=== PATIENT | female | born 1960 | race Caucasian/White ===

== ENCOUNTER 2017-01-19 22:01 | Inpatient (IN) ==
[2017-01-19 22:56] LABS: Basophils % 0.3 %; Eosinophils # 0.1 K/mcL (0.0-0.6); Eosinophils % 0.4 %; Hematocrit 45.8 % (35.3-44.9); Hemoglobin 14.8 g/dL (11.5-15.4); Immature Granulocytes % 0.7 % (0-4); Lymphocytes # 2.2 K/mcL (0.6-4.6); Lymphocytes % 16.9 %; Mean Corpuscular HGB Conc 32.3 g/dL (31.6-35.5); Mean Corpuscular Hemoglobin 27.5 pg (28.0-33.3); Mean Platelet Volume 8.9 fL (9.4-12.4); Monocytes # 0.8 K/mcL (0.0-1.3); Monocytes % 6.1 %; Platelet Count 419 K/mcL (140-400); Red Blood Count 5.39 M/mcL (3.82-4.97); Red Cell Distribution Width 15.1 % (11.5-14.5); Segmented Neutrophils % 75.6 %
[2017-01-19 22:57] LABS: Bilirubin,Urine Negative (Negative); Blood,Urine Negative (Negative); Color,Urine Yellow (Yellow); Leukocyte Esterase,Urine Small (Negative); Nitrite,Urine Negative (Negative); Urobilinogen,Urine Normal (Normal)
[2017-01-19] MEDS ORDERED: Ondansetron 4 MG/2 ML VIAL IVP ONE (22:57)
[2017-01-19] MEDS ORDERED: 0.9 % Sodium Chloride 1,000 ML IVC ONE (22:58)
[2017-01-19 23:10] LABS: Alanine Aminotransferase 20 Units/L (0-55); Albumin 3.5 g/dL (3.5-5.0); Albumin/Globulin Ratio 0.8 (1.1-2.2); Alkaline Phosphatase 97 Units/L (38-126); Amylase 218 Units/L (25-125); Aspartate Amino Transferase 15 Units/L (5-34); BUN/Creatinine Ratio 10 (6-26); Bilirubin,Direct 0.1 mg/dL (0.0-0.5); Bilirubin,Indirect 0.2 mg/dL (0.0-1.2); Bilirubin,Total 0.3 mg/dL (0.2-1.2); Blood Urea Nitrogen 8 mg/dL (7-20); Carbon Dioxide 21 mEq/L (19-29); Chloride 105 mEq/L (98-109); Globulin 4.5 g/dL (2.4-3.5); Glucose 141 mg/dL (70-99); Lipase 796 Units/L (8-78); Osmolality,Calculated 287 (280-300); Potassium 3.9 mEq/L (3.5-4.5); Sodium 138 mEq/L (136-145); eGFR For African Americans > 60 (> 60); eGFR For Non-African Americans > 60 (> 60)
[2017-01-19 23:16] LABS: Clarity,Urine Clear (Clear)
[2017-01-19 23:17] LABS: Glucose,Urine (UA) >=1000 mg/dL (Normal)
[2017-01-19 23:18] LABS: Ketones,Urine Negative (Negative)
[2017-01-19 23:19] LABS: Protein,Urine Negative (Neg-Trace); Specific Gravity,Urine 1.016 (1.010-1.025)
[2017-01-19 23:26] LABS: RBC,Urine 0-3 per hpf (0-3); Squamous Epithelial Cell,Urine Few per lpf (None-Few)
--- NOTE | 2017-01-19 23:47 | Emergency Department Note ---
Disposition Clinical Impression: Nausea Diarrhea Qualifiers: Diarrhea type: unspecified type Qualified Code(s): R19.7 - Diarrhea, unspecified Abdominal pain Qualifiers: Abdominal location: left lower quadrant Qualified Code(s): R10.32 - Left lower quadrant pain Pancreatitis Qualifiers: Chronicity: acute Pancreatitis type: unspecified pancreatitis type Acute pancreatitis complication: unspecified Qualified Code(s): K85.90 - Acute pancreatitis without necrosis or infection, unspecified Disposition: Admitted As Inpatient Time of Disposition: 00:55 Abdominal Pain HPI - General Chief Complaint: ED Abdominal Pain Stated Complaint: "Diarrhea/Nausea/Vomiting" Time Seen by Provider: 01/19/17 22:41 Source: patient Nursing Notes Reviewed: Yes Vital Signs Reviewed: Yes - History of Present Illness HPI Narrative: Mrs. Muñoz, 56-year-old female, presents from home by POV with chief complaint of nausea, vomiting, diarrhea. Onset 3 weeks ago. At that time, she was evaluated by her primary care physician and received an unknown antibiotic. 2 weeks ago should, she followed up with her blood bank coordinator, , who prescribes a fiber supplement attempting to firm up bowel movements. Her diarrhea persisted. She presented to this department this past Wednesday and was empirically treated for C. difficile colitis however stool sample was not collected at that time. Patient's symptoms worsened and thus her presentation today. Patient also notes bright red blood spots in the water of commode which began this morning. She denies any recent travel, camping, or unusual foods. PMH: Hypertension, diabetes-oral antihyperglycemic and insulin Abdominal surgeries: Appendectomy ROS: Positive chills, nausea, vomiting, persistent loose bowels Pain Scale: 10 - Related Data Previous Rx's Medication Instructions Recorded Sulfamethoxazole/Trimeth DS 1 each PO BID #14 tablet 08/11/16 [Bactrim DS] metroNIDAZOLE [Flagyl] 500 mg PO TID #21 tablet 01/15/17 Allergies Allergy/AdvReac Type Severity Reaction Status Date / Time No Known Allergies Allergy Verified 08/10/16 22:23 All systems ED: reviewed and negative except as stated. Abdominal Pain PMH - Past Medical History Medical history: Reports: diabetes, hypertension, thyroid disease Female Surgical History: Reports: hysterectomy, orthopedic, other Psychiatric history: Reports: anxiety - Social History Smoking status: Current every day smoker Alcohol use: Reports: none Drug use: Reports: none Physical Exam Vital Signs Reviewed General: Patient is alert, oriented, and in moderate distress. HEENT: No facial asymmetry. Head is normocephalic and atraumatic. Trachea midline. Oral mucosa dry. Cardiovascular: Heart regular rate and rhythm without clicks, rubs, gallops, or murmurs. No JVD. PMI nondisplaced. Respiratory: Symmetric chest rise with good respiratory effort. Bilateral breath sounds are clear without wheezing, crackles, or rhonchi. Abdomen: Obese. Bowel sounds present normoactive x-4 quadrants. Abdomen is soft, nondistended. Mild left lower quadrant tenderness. Psych: Patient's affect is appropriate for situation. - General Limitations: no limitations General appearance: alert Course Course Narrative: Concern is for continued colitis. Need to rule out mesenteric ischemia. Fecal occult blood test positive. However lipase indicates pancreatitis. Patient's abdominal pain for the controlled despite opiate administration. Nausea moderately controlled despite multiple doses of Zofran. Discussed with the patient and her at bedside agreed to admission for continued pain management, nausea control, and evaluation of her diarrhea. Spoke with the hospitalist, Dr. Nunes, who agrees to accept the patient. Vital Signs Temperature 98.2 F 01/19/17 22:14 Pulse Rate 110 01/19/17 22:14 Respiratory Rate 20 01/19/17 22:14 Blood Pressure 122/78 01/19/17 22:14 O2 Sat by Pulse Oximetry 95 01/19/17 22:14 Temperature 98.2 F 01/19/17 22:14 Pulse Rate 90 01/20/17 00:10 Respiratory Rate 16 01/20/17 00:59 Blood Pressure 115/67 01/20/17 00:59 O2 Sat by Pulse Oximetry 95 01/20/17 00:10 Oxygen Delivery Oxygen Delivery Room Air Abdominal Pain - Lab Data Result diagrams: 01/19/17 22:39 01/19/17 22:39 Lab Results 01/19/17 01/19/17 01/19/17 Range/Units 22:30 22:39 22:39 WBC 13.2 H (4.3-11.1) K/mcL RBC 5.39 H (3.82-4.97) M/mcL Hgb 14.8 D (11.5-15.4) g/dL Hct 45.8 H (35.3-44.9) % MCV 85.0 (83.0-100.0) fL MCH 27.5 L (28.0-33.3) pg MCHC 32.3 (31.6-35.5) g/dL RDW 15.1 H (11.5-14.5) % Plt Count 419 H (140-400) K/mcL MPV 8.9 L (9.4-12.4) fL Immature Gran % 0.7 (0-4) % Seg Neutrophils % 75.6 % Lymphocytes % 16.9 % Monocytes % 6.1 % Eosinophils % 0.4 % Basophils % 0.3 % Neutrophils # 10.0 H (1.6-8.9) K/mcL Lymphocytes # 2.2 (0.6-4.6) K/mcL Monocytes # 0.8 (0.0-1.3) K/mcL Eosinophils # 0.1 (0.0-0.6) K/mcL Basophils # 0.0 (0.0-0.2) K/mcL Sodium 138 (136-145) mEq/L Potassium 3.9 (3.5-4.5) mEq/L Chloride 105 (98-109) mEq/L Carbon Dioxide 21 (19-29) mEq/L BUN 8 (7-20) mg/dL Creatinine 0.84 (0.57-1.11) mg/dL Est GFR ( Amer) > 60 (> 60) Est GFR (Non-Af Amer) > 60 (> 60) BUN/Creatinine Ratio 10 (6-26) Glucose 141 H (70-99) mg/dL Calculated Osmolality 287 (280-300) Lactic Acid (0.5-2.2) mmol/L Calcium 10.0 (8.6-10.8) mg/dL Total Bilirubin 0.3 (0.2-1.2) mg/dL Direct Bilirubin 0.1 (0.0-0.5) mg/dL Indirect Bilirubin 0.2 (0.0-1.2) mg/dL AST 15 (5-34) Units/L ALT 20 (0-55) Units/L Alkaline Phosphatase 97 (38-126) Units/L Serum Total Protein 8.0 (6.0-8.3) g/dL Albumin 3.5 (3.5-5.0) g/dL Globulin 4.5 H (2.4-3.5) g/dL Albumin/Globulin Ratio 0.8 L (1.1-2.2) Amylase 218 H (25-125) Units/L Lipase 796 H (8-78) Units/L Urine Color Yellow (Yellow) Urine Clarity Clear (Clear) Urine pH 6.0 (5.0-8.0) pH Units Ur Specific [place] 1.016 (1.010-1.025) Urine Protein Negative (Neg-Trace) mg/dL Urine Glucose (UA) >=1000 H (Normal) mg/dL Urine Ketones Negative (Negative) mg/dL Urine Blood Negative (Negative) Urine Nitrite Negative (Negative) Urine Bilirubin Negative (Negative) Urine Urobilinogen Normal (Normal) mg/dL Ur Leukocyte Esterase Small H (Negative) Urine Microscopic RBC 0-3 (0-3) per hpf Urine Microscopic WBC 3-5 H (0-3) per hpf Ur Squamous Epith Cells Few (None-Few) per lpf Urine Bacteria Test Not Performed Hyaline Casts Test Not Performed Ur Culture Indicated? NO (NO) Stool Occult Blood (Negative) 01/19/17 01/20/17 Range/Units 23:36 00:35 WBC (4.3-11.1) K/mcL RBC (3.82-4.97) M/mcL Hgb (11.5-15.4) g/dL Hct (35.3-44.9) % MCV (83.0-100.0) fL MCH (28.0-33.3) pg MCHC (31.6-35.5) g/dL RDW (11.5-14.5) % Plt Count (140-400) K/mcL MPV (9.4-12.4) fL Immature Gran % (0-4) % Seg Neutrophils % % Lymphocytes % % Monocytes % % Eosinophils % % Basophils % % Neutrophils # (1.6-8.9) K/mcL Lymphocytes # (0.6-4.6) K/mcL Monocytes # (0.0-1.3) K/mcL Eosinophils # (0.0-0.6) K/mcL Basophils # (0.0-0.2) K/mcL Sodium (136-145) mEq/L Potassium (3.5-4.5) mEq/L Chloride (98-109) mEq/L Carbon Dioxide (19-29) mEq/L BUN (7-20) mg/dL Creatinine (0.57-1.11) mg/dL Est GFR ( Amer) (> 60) Est GFR (Non-Af Amer) (> 60) BUN/Creatinine Ratio (6-26) Glucose (70-99) mg/dL Calculated Osmolality (280-300) Lactic Acid 0.6 (0.5-2.2) mmol/L Calcium (8.6-10.8) mg/dL Total Bilirubin (0.2-1.2) mg/dL Direct Bilirubin (0.0-0.5) mg/dL Indirect Bilirubin (0.0-1.2) mg/dL AST (5-34) Units/L ALT (0-55) Units/L Alkaline Phosphatase (38-126) Units/L Serum Total Protein (6.0-8.3) g/dL Albumin (3.5-5.0) g/dL Globulin (2.4-3.5) g/dL Albumin/Globulin Ratio (1.1-2.2) Amylase (25-125) Units/L Lipase (8-78) Units/L Urine Color (Yellow) Urine Clarity (Clear) Urine pH (5.0-8.0) pH Units Ur Specific [place] (1.010-1.025) Urine Protein (Neg-Trace) mg/dL Urine Glucose (UA) (Normal) mg/dL Urine Ketones (Negative) mg/dL Urine Blood (Negative) Urine Nitrite (Negative) Urine Bilirubin (Negative) Urine Urobilinogen (Normal) mg/dL Ur Leukocyte Esterase (Negative) Urine Microscopic RBC (0-3) per hpf Urine Microscopic WBC (0-3) per hpf Ur Squamous Epith Cells (None-Few) per lpf Urine Bacteria Hyaline Casts Ur Culture Indicated? (NO) Stool Occult Blood Positive A (Negative) Attestation Statement - Attestation Attestation: I, Tee Sparrow MD, personally evaluated this patient and discussed their management with the resident physician. I reviewed the resident's note and agree with the documented findings, medical decision making, and plan of care. 56-year-old female presents to the emergency department with a complaint of nausea vomiting diarrhea and abdominal pain which has been going on for at least 3 weeks. The diarrhea is somewhat chronic but flares up intermittently. Seen previously for this and just recently had a CT of the abdomen. She has also been seen by gastroenterology. She presents tonight complaining of increased symptoms diarrhea. No fever. On examination patient is a well-developed well-nourished female in no acute distress. She is alert and oriented 3. There is no cyanosis or diaphoresis. Breath sounds are clear and equal bilaterally. Heart regular rate and rhythm. Abdomen is soft with moderate midepigastric and mild diffuse tenderness. Bowel sounds are increased. No guarding or rebound tenderness. Labs reviewed. Elevated amylase and lipase. The hospitalist, Dr. Arellano, was consulted and accepted admission of the patient.
[2017-01-20 01:02] LABS: Adenovirus F 40/41 PCR Not detected (Not detect); Astrovirus PCR Not detected (Not detect); C.difficile Toxin A/B by PCR Not detected (Not detect); Campylobacter by PCR Not detected (Not detect); Cryptosporidium by PCR Not detected (Not detect); Cyclospora cayetanensis PCR Not detected (Not detect); E. coli O157 by PCR Not detected (Not detect); Entamoeba histolytica PCR Not detected (Not detect); Enteroaggregative E.coli(EAEC) Not detected (Not detect); Enteropathogenic E.coli(EPEC) Not detected (Not detect); Enterotoxigenic E.coli (ETEC) Not detected (Not detect); Giardia lamblia PCR Not detected (Not detect); Norovirus GI/GII PCR Not detected (Not detect); Plesiomonas shigelloides PCR Not detected (Not detect); Rotavirus A PCR Not detected (Not detect); Salmonella PCR Not detected (Not detect); Sapovirus PCR Not detected (Not detect); Shig/EnteroinvasiveE coli EIEC Not detected (Not detect); Shigalike tox-prod E coli STEC Not detected (Not detect); Vibrio PCR Not detected (Not detect); Vibrio cholerae PCR Not detected (Not detect); Yersinia enterocolitica PCR Not detected (Not detect)
--- NOTE | 2017-01-20 01:34 | Internal Med History&Physical ---
Date of Encounter: 01/20/17 Time of Encounter: 01:34 Assessment and Plan (1) Colitis Current visit: Yes Status: Acute patient with a description of prior irritable bowel syndrome and normal prior colonoscopy comes in with worsening diarrhea that is bloody, stool exam is unremarkable, the etiology of her current predicament may be inflammatory in origin, her Abdo/pelvic CT on 01/15 reports resolving terminal ileum inflammation , suspected ileus/enteritis we will treat empirically with IV cipro/flagyl, she will benefit from colonoscopy when this acute period has resolved for further evaluation of her symptoms IVF, antiemetics, pain management (2) Diabetes mellitus Current visit: Yes Status: Chronic reported hx of Type DM with last A1c unknown, we will do FS ACHS with SSI for coverage, will check A1c Qualifiers: Diabetes mellitus type: type 2 Diabetes mellitus complication status: with neurologic complications Diabetes mellitus complication detail: with polyneuropathy Diabetes mellitus intermission coordinator insulin use: without intermission coordinator use Qualified Code(s): E11.42 - Type 2 diabetes mellitus with diabetic polyneuropathy (3) HTN (hypertension) Current visit: Yes Status: Chronic normotensive BP currently, will monitor and find out about her home medications Qualifiers: Hypertension type: essential hypertension Qualified Code(s): I10 - Essential (primary) hypertension Internal Medicine - H&P: HPI Chief complaint: nausea, abdominal pain and diarrhea Admitted From: Emergency Dept Plans for Post Hospital Care: Home History of present illness: Ms. Muñoz is a 56 year old female with a history of chronic diarrhea for the past 20 years comes in with worsening diarrhea. She reports that she has had worsening of her symptoms in the past 4 weeks, 3 weeks ago she received some antibiosis for her symptoms and after that her diarrhea continued. About a week ago she noticed that her stool were bloody which she has never had prior. Her diarrhea has also been associated with crampy lower abdominal pain mostly in the right and let lower abdomen, worse with movement, eating. She has nausea but no vomiting though she has dry heaves, no fever chills but she fees very fatigued with generalized weakness. Past Med Surg Social Fam HX - Past Medical History Medical history: diabetes, hyperlipidemia, hypertension, thyroid disease, other (osteoarthritis, bladder stones) Psychiatric history: anxiety - Past Surgical History Surgical History: hysterectomy, other (tonsillectomy), arthroscopy (left) - Social History Smoking Status: Current every day smoker Packs per day: 1ppd for about 50 years now Smokeless Tobacco Status: No Alcohol use: none Drug use: none Current living situation: Home - Independent, With Family Activity Level: Independent ambulation - Family History Mother Living Status: Age at : 81 Cause of : COPD Hx Family Endocrine Disorder: Yes (DM) Father Living Status: Age at : 62 Cause of : [place] Hx Family Cardiac Disorders: Yes (unknown) Hx Family Cancer: Yes (stomach) - Additional Family History Additional family history: father is , he had stomach cancer in his 50's , mother is also and she had COPD, brother's beck has crohn's disease Internal Medicine - H&P: Meds Sulfamethoxazole/Trimeth DS [Bactrim DS] 1 each PO BID #14 tablet 08/11/16 [Rx] metroNIDAZOLE [Flagyl] 500 mg PO TID #21 tablet 01/15/17 [Rx] Allergies No Known Allergies Allergy (Verified 08/10/16 22:23) All Systems PM: A 10-system review of systems was performed and is negative for pertinent findings except as documented above in the HPI. - Constitutional Vitals: Temp Pulse Resp BP Pulse Ox 98.3 F 98 18 123/74 94 01/20/17 01:25 01/20/17 01:25 01/20/17 01:25 01/20/17 01:25 01/20/17 01:25 PHYSICAL EXAMINATION: GENERAL: Adult female, lying in bed in obvious distress, Alert, HEENT: NC/AT, EOMI, PERRLA, anicteric sclera, normal conjunctiva, supple, clear nares, dry mucous membranes, RESP: lungs are clear to auscultation bilaterally, good AE bilaterally, No crackles or wheeze CARDIO: Normal hearts sounds; S1 and 2, RRR with no murmurs, no JVD, GI: Soft, full, tenderness in the bilateral lower quadrants, no guarding, no organomegaly felt, occasional bowel sounds heard MUSCULOSKELETAL: grossly normal movements bilaterally, no deformities noted, no calf tenderness NEUROLOGIC: CN 2-12 intact grossly. No motor/sensory deficit appreciated, PSYCHIATRY: AAO x 3. Mood is fair, SKIN: no skin rash or ulcers noted Internal Med - H&P Results - Labs CBC & Chem 7: 01/19/17 22:39 01/19/17 22:39 - Diagnostic Studies CT scan - abdomen Status: image reviewed by me (from 01/15)
[2017-01-20] MEDS ORDERED: Naloxone 0.4 MG/ML INJ IVP PRN (01:56)
[2017-01-20] MEDS ORDERED: *HR* HYDROmorphone (PF) 1 MG/ML SYRINGE IVP PRN (01:59)
[2017-01-20] MEDS ORDERED: Acetaminophen 325 MG TABLET PO PRN (03:01)
[2017-01-20] MEDS: Ringers Solution, Lactated 1,000 ML IVC SCH ×3 (03:12→21:20)
[2017-01-20] MEDS ORDERED: Nicotine 14 MG PATCH.TD24 TD SCH (03:15)
[2017-01-20 05:21] LABS: Basophils % 0.3 %; Eosinophils # 0.1 K/mcL (0.0-0.6); Eosinophils % 0.5 %; Hematocrit 42.6 % (35.3-44.9); Hemoglobin 13.6 g/dL (11.5-15.4); Immature Granulocytes % 0.5 % (0-4); Lymphocytes # 1.9 K/mcL (0.6-4.6); Lymphocytes % 19.5 %; Mean Corpuscular HGB Conc 31.9 g/dL (31.6-35.5); Mean Corpuscular Hemoglobin 27.4 pg (28.0-33.3); Mean Corpuscular Volume 85.9 fL (83.0-100.0); Mean Platelet Volume 9.3 fL (9.4-12.4); Monocytes # 0.7 K/mcL (0.0-1.3); Monocytes % 7.5 %; Platelet Count 367 K/mcL (140-400); Red Blood Count 4.96 M/mcL (3.82-4.97); Red Cell Distribution Width 15.2 % (11.5-14.5); Segmented Neutrophils % 71.7 %
[2017-01-20 05:44] LABS: BUN/Creatinine Ratio 10 (6-26); Blood Urea Nitrogen 8 mg/dL (7-20); Carbon Dioxide 24 mEq/L (19-29); Chloride 107 mEq/L (98-109); Glucose 127 mg/dL (70-99); Magnesium 1.4 mg/dL (1.6-2.6); Osmolality,Calculated 288 (280-300); Phosphorous 2.6 mg/dL (2.3-4.7); Potassium 3.9 mEq/L (3.5-4.5); Sodium 139 mEq/L (136-145); eGFR For African Americans > 60 (> 60); eGFR For Non-African Americans > 60 (> 60)
[2017-01-20 05:52] LABS: Thyroid Stimulating Hormone 2.361 mcIU/mL (0.350-4.840)
[2017-01-20] MEDS: *HR* Heparin 5,000 UNIT/ML VIAL SQ SCH ×3 (06:11→20:16)
[2017-01-20] MEDS: MetroNIDAZOLE 500 MG/100 ML 500 MG/100 ML BAG IVPB SCH ×2 (08:13→17:20)
--- NOTE | 2017-01-20 12:15 | Internal Med Progress Note ---
Date of Encounter: 01/20/17 Time of Encounter: 10:00 - Assessment and plan (1) DVT prophylaxis Current Visit: Yes Status: Acute Assessment and plan: Heparin subcutaneously (2) Diarrhea Current Visit: Yes Status: Acute Assessment and plan: Patient has a chronic diarrhea for years. Need to rule out IBD. We will consult GI. Qualifiers: Diarrhea type: unspecified type Qualified Code(s): R19.7 - Diarrhea, unspecified (3) Colitis Current Visit: Yes Status: Acute Assessment and plan: We will continue IV fluid, nothing by mouth, and IV antibiotics. - Patient's symptoms has improved after treatment. (4) Diabetes mellitus Current Visit: Yes Status: Chronic Assessment and plan: We will cover patient with sliding scale Qualifiers: Diabetes mellitus type: type 2 Diabetes mellitus complication status: with neurologic complications Diabetes mellitus complication detail: with polyneuropathy Diabetes mellitus long-term insulin use: with long-term use Qualified Code(s): E11.42 - Type 2 diabetes mellitus with diabetic polyneuropathy; Z79.4 - halfway (current) use of insulin (5) HTN (hypertension) Current Visit: Yes Status: Chronic Assessment and plan: We will continue home medication Qualifiers: Hypertension type: essential hypertension Qualified Code(s): I10 - Essential (primary) hypertension - Time Spent With Patient 25 - 35 minutes - Subjective Interval history: Patient is a 56-year-old female admitted for bloody diarrhea. Her past medical history is significant for diabetes, hypertension, hyperlipidemia, thyroid disease. I saw and examined the patient today. Patient to feel less abdominal pain. Has 1 episode of diarrhea this morning, no blood in it. Vitals are stable. We will continue nothing by mouth, IV fluid, and IV Cipro and Flagyl treatment. We will consult GI to rule out IBD. - Constitutional Vitals: Temp Pulse Resp BP Pulse Ox 98.0 F 87 14 132/80 95 01/20/17 11:59 01/20/17 11:59 01/20/17 11:59 01/20/17 11:59 01/20/17 11:59 General appearance: Present: A&O X 3, no acute distress, answers questions appropriately - Head Head exam: Present: atraumatic, normocephalic - Eye Eye exam: Present: PERRL, conjuntiva pink, sclera anicteric Pupils: Present: PERRL - Neck Neck exam general surgery: Present: supple, trachea midline. Absent: lymphadenopathy - Respiratory Respiratory exam: Present: CTAB. Absent: accessory muscle use, rales, rhonchi, wheezes - Cardiovascular Cardiovascular exam: Present: RRR, +S1, +S2. Absent: diastolic murmur, gallop, rubs, systolic murmur - GI/Abdominal GI/Abdominal exam: Present: normal bowel sounds, soft, tenderness (Mild abdominal tenderness without rebound or guarding), no peritoneal signs. Absent : distended - Extremities Exam Extremities exam: Present: warm, radial pulses palpable and symetrical. Absent : calf tenderness, cyanotic, pedal edema - Neurological Exam Neurological exam: Present: CN II-XII intact, oriented X3, no focal deficits. Absent: pronater drift, facial droop, speech deficit - Skin Skin exam: Present: dry, intact Internal Medicine: Result - Labs CBC & Chem 7: 01/20/17 04:48 01/20/17 04:48 Labs: Short CBC 01/20/17 Range/Units 04:48 WBC 9.8 (4.3-11.1) K/mcL Hgb 13.6 (11.5-15.4) g/dL Hct 42.6 (35.3-44.9) % Plt Count 367 (140-400) K/mcL Neutrophils # 7.0 (1.6-8.9) K/mcL BMP 01/20/17 04:48 Sodium 139 Potassium 3.9 Chloride 107 Carbon Dioxide 24 BUN 8 Creatinine 0.79 Glucose 127 H Calcium 9.0 Consult Discharge Plan - Plan Referrals: Carlos Casey MD [Primary Care Provider] -
[2017-01-20] MEDS ORDERED: D5% in Water 1,000 ML IVC PRN (12:20)
[2017-01-20] MEDS ORDERED: Dextrose Gel 15 GM PO PRN ×2 (12:20)
[2017-01-20] MEDS ORDERED: *HR* Dextrose 50 % in Water (Syg) 50 ML SYRINGE IVP PRN (12:20)
--- NOTE | 2017-01-20 12:24 | Gastroenterology Consult Note ---
<HartJet aranda Shiela - Last Filed: 01/20/17 12:24> Date of Encounter: 01/20/17 Time of Encounter: 10:55 - Assessment and plan (1) Diarrhea Current Visit: Yes Status: Acute Assessment and plan: GI panel negative. Checking pancreatic elastase and fecal fat due to fecal incontinence. Plan for colonoscopy tomorrow. Clear liquid diet today, no red or purple. NPO at midnight. If unable tolerate NuLytely please use MiraLAX prep. If not clear by 6 AM, give 2 tap water enemas. Qualifiers: Diarrhea type: unspecified type Qualified Code(s): R19.7 - Diarrhea, unspecified (2) Colitis Current Visit: Yes Status: Acute Assessment and plan: Patient had CT that showed inflammation of the terminal ileum. CT a when necessary 01/15 showed resolution of that inflammation of the terminal ileum. Plan for colonoscopy to evaluate diarrhea and TI. ASCA and ANCA were within normal limits. (3) Fecal incontinence Current Visit: Yes Status: Acute Assessment and plan: Check fecal fat and pancreatic elastase. Qualifiers: Fecal incontinence type: fecal urgency Qualified Code(s): R15.9 - Full incontinence of feces; R15.2 - Fecal urgency - Time Spent With Patient Total time spent is greater than 50% in coordination of care (as documented) at patient's floor/unit and/or counseling patient: GI History of Present Illness - Data of Consult Patient: known to practice within the last 3 years Consult date: 01/20/17 Requesting Physician: Mabel José MD - Consult Narrative Reason for consult: Bloody diarrhea History of present illness: Ms. Muñoz is a 56 year old female with PMHx of DM, HLD, HTN, and chronic diarrhea for the past 20 years presented with worsening diarrhea. She states the diarrhea has been worsening over the past 4 weeks. She states she received antibiotics for her symptoms 3 weeks ago, and her diarrhea continued. About a week ago she noticed that her stool were bloody which she has never had prior. Her diarrhea has also been associated with crampy lower abdominal pain mostly in the right and left lower abdomen, worse with movement, eating. She denies fever, chills, vomiting, hematemesis, or melena. CT A/P on 01/15 showed resolution of inflammation at the terminal ileum, suspected ileitis/enteritis of the distal small bowel has also resolved. She was started on IV Cipro and Flagyl. Procedures: EGD 11/06/2014 Dr. Champion: Gastritis Colonoscopy 11/06/2014 Dr. Champion: Few scattered tiny apthous ulcers in the terminal ileum, 5 mm tubular adenoma in descending colon, mild active chronic colitis, and hyperplastic rectal polyp Capsule endoscopy 12/31/2014 Dr. Champion: Normal capsule endoscopy with no evidence of mucosal Crohn's disease. NSAIDs: None Anticoagulation: None Past Med Surg Social Fam HX - Past Medical History Medical history: diabetes, hyperlipidemia, hypertension, thyroid disease, other (osteoarthritis, bladder stones) Psychiatric history: anxiety - Past Surgical History Surgical History: hysterectomy, other (tonsillectomy), arthroscopy (left) - Social History Smoking Status: Current every day smoker Packs per day: 1ppd for about 50 years now Smokeless Tobacco Status: No Alcohol use: none Drug use: none - Family History Mother Living Status: Age at : 81 Cause of : COPD Hx Family Endocrine Disorder: Yes (DM) Father Living Status: Age at : 62 Cause of : SD,CA Hx Family Cardiac Disorders: Yes (unknown) Hx Family Cancer: Yes (stomach) - Gastrointestinal Gastrointestinal: Present: as per HPI - Constitutional Constitutional: as per HPI - EENT Eyes: as per HPI Ears: Present: as per HPI Nose, mouth and throat: Present: as per HPI - Cardiovascular Cardiovascular ROS: Present: as per HPI - Respiratory Respiratory IM: Present: as per HPI - Genitourinary Genitourinary: Absent: change in color, Urinary frequency - Neurological ROS Neurological GI: Present: as per HPI - Hematologic/Lymphatic Hematologic/Lymphatic pediatric: Present: as per HPI - Musculoskeletal Musculoskeletal ROS GI: Present: as per HPI - Integumentary Integumentary GI: Present: as per HPI - Psychiatric ROS Psychiatric GI: Present: as per HPI - Endocrine Endocrine IM: Present: as per HPI - Constitutional Vitals: Temp Pulse Resp BP Pulse Ox 98.0 F 87 14 132/80 95 01/20/17 11:59 01/20/17 11:59 01/20/17 11:59 01/20/17 11:59 01/20/17 11:59 General appearance: Present: cooperative, A&O X 3, no acute distress, answers questions appropriately - Head Head exam: Present: atraumatic, normocephalic - Eye Eye exam: Present: normal appearance, sclera anicteric - ENT ENT exam: Present: mucous membranes dry - Neck Neck exam general surgery: Present: normal inspection, trachea midline - Respiratory Respiratory exam: Present: CTAB. Absent: rales, rhonchi, wheezes - Cardiovascular Cardiovascular exam: Present: RRR, +S1, +S2 - GI/Abdominal GI/Abdominal exam: Present: soft, no peritoneal signs. Absent: distended, firm , guarding, tenderness - Rectal Rectal exam: Present: deferred - Extremities Exam Extremities exam: Present: warm - Neurological Exam Neurological exam: Present: no focal deficits - Psychiatric Psychiatric exam: Present: normal affect, normal mood - Skin Skin exam: Present: dry, intact, normal color, warm Results - Labs CBC & Chem 7: 01/20/17 04:48 01/20/17 04:48 Labs: Last Result Calcium 9.0 mg/dL (8.6-10.8) 01/20/17 04:48 Stool Occult Blood Positive (Negative) A 01/19/17 23:36 Entire Visit Hgb 13.6 g/dL (11.5-15.4) 01/20/17 04:48 Hct 42.6 % (35.3-44.9) 01/20/17 04:48 Total Bilirubin 0.3 mg/dL (0.2-1.2) 01/19/17 22:39 AST 15 Units/L (5-34) 01/19/17 22:39 ALT 20 Units/L (0-55) 01/19/17 22:39 Amylase 218 Units/L (25-125) H 01/19/17 22:39 Lipase 796 Units/L (8-78) H 01/19/17 22:39 Consult Discharge Plan - Plan Referrals: Carlos Casey MD [Primary Care Provider] - <Dorothy Champion - Last Filed: 01/20/17 18:22> Date of Encounter: 01/20/17 Time of Encounter: 15:00 - Time Spent With Patient Total time spent is greater than 50% in coordination of care (as documented) at patient's floor/unit and/or counseling patient: GI History of Present Illness - Data of Consult Requesting Physician: Mabel José MD - Consult Narrative History of present illness: Ms. Muñoz is a 56 year old female - Constitutional Vitals: Temp Pulse Resp BP Pulse Ox 98.2 F 91 20 136/75 95 01/20/17 15:19 01/20/17 15:19 01/20/17 15:19 01/20/17 15:19 01/20/17 15:19 Results - Labs CBC & Chem 7: 01/20/17 04:48 01/20/17 04:48 Labs: Last Result Calcium 9.0 mg/dL (8.6-10.8) 01/20/17 04:48 Stool Occult Blood Positive (Negative) A 01/19/17 23:36 Entire Visit Hgb 13.6 g/dL (11.5-15.4) 01/20/17 04:48 Hct 42.6 % (35.3-44.9) 01/20/17 04:48 Total Bilirubin 0.3 mg/dL (0.2-1.2) 01/19/17 22:39 AST 15 Units/L (5-34) 01/19/17 22:39 ALT 20 Units/L (0-55) 01/19/17 22:39 Amylase 218 Units/L (25-125) H 01/19/17 22:39 Lipase 796 Units/L (8-78) H 01/19/17 22:39 - Attending Attestation I examined this patient and my medical decision-making was reviewed with the ASSISTANT FARM OPERATIONS MANAGER/PA/Advanced Practice Nurse/Resident Physician. I agree with the documented findings, disposition and treatment plan as described except to the extent set forth below. Patient with epigastric pain and tenderness on palpation. Does has long history of diarrhea now with rectal bleeding. Recommendation is for EGD and colonoscopy tomorrow
[2017-01-20] MEDS ORDERED: NON-FORMULARY MEDICATION 1 EACH EACH (Alendronate Sodium [Fosamax] 70 MG) PO SCH (12:30)
[2017-01-20] MEDS: Ondansetron 4 MG/2 ML VIAL IVP PRN ×2 (12:54→20:17)
[2017-01-20] MEDS: Cholecalciferol (D-3) 1,000 UNIT TABLET PO SCH (12:54)
[2017-01-20] MEDS ORDERED: Nicotine 7 MG PATCH.TD24 TD SCH (16:43)
[2017-01-20] MEDS ORDERED: SODIUM CHLORIDE/NAHCO3/KCL/PEG 4,000 ML SOLN.RECON PO ONE (17:00)
[2017-01-20] MEDS ORDERED: Insulin LISPRO 300 UNITS/3 ML VIAL SQ SCH (18:00)
[2017-01-20] MEDS: Cholestyramine 4 GM POWD.PACK PO SCH (18:46)
[2017-01-20] MEDS: Insulin LISPRO 300 UNITS/3 ML VIAL SQ SCH ×2 (18:47→21:51)
[2017-01-20] MEDS ORDERED: Polyethylene Glycol 3350 255 GM POWDER PO ONE (19:57)
[2017-01-20] MEDS: Insulin DETEMIR 100 UNIT/ML X5UNITS SQ SCH (21:23)
[2017-01-21] MEDS: MetroNIDAZOLE 500 MG/100 ML 500 MG/100 ML BAG IVPB SCH ×3 (00:28→17:10)
[2017-01-21] MEDS: *HR* HYDROmorphone (PF) 1 MG/ML SYRINGE IVP PRN ×4 (00:29→21:24)
[2017-01-21 04:38] LABS: Basophils % 0.3 %; Eosinophils % 0.6 %; Hemoglobin 13.4 g/dL (11.5-15.4); Immature Granulocytes % 0.3 % (0-4); Lymphocytes # 1.5 K/mcL (0.6-4.6); Lymphocytes % 23.3 %; Mean Corpuscular HGB Conc 32.7 g/dL (31.6-35.5); Mean Corpuscular Hemoglobin 28.2 pg (28.0-33.3); Mean Corpuscular Volume 86.1 fL (83.0-100.0); Mean Platelet Volume 9.4 fL (9.4-12.4); Monocytes # 0.5 K/mcL (0.0-1.3); Monocytes % 8.1 %; Platelet Count 325 K/mcL (140-400); Red Blood Count 4.76 M/mcL (3.82-4.97); Red Cell Distribution Width 15.3 % (11.5-14.5); Segmented Neutrophils % 67.4 %
[2017-01-21 04:41] LABS: Neutrophils # 4.5 K/mcL (1.6-8.9)
[2017-01-21 04:53] LABS: Hemoglobin A1C 7.3 %
[2017-01-21 05:06] LABS: Platelet Estimate Normal (Normal)
[2017-01-21 05:07] LABS: Polychromasia 1+ (Not Present)
[2017-01-21 05:37] LABS: BUN/Creatinine Ratio 5 (6-26); Calcium 8.8 mg/dL (8.6-10.8); Carbon Dioxide 24 mEq/L (19-29); Chloride 109 mEq/L (98-109); Glucose 148 mg/dL (70-99); Osmolality,Calculated 294 (280-300); Potassium 3.5 mEq/L (3.5-4.5); Sodium 142 mEq/L (136-145); eGFR For African Americans > 60 (> 60); eGFR For Non-African Americans > 60 (> 60)
[2017-01-21 05:38] LABS: Blood Urea Nitrogen 4 mg/dL (7-20)
[2017-01-21] MEDS: *HR* Heparin 5,000 UNIT/ML VIAL SQ SCH ×3 (06:02→21:24)
[2017-01-21] MEDS ORDERED: Magnesium Sulfate 2 GM in D5% in Water 100 ML IVPB ONE (07:54)
[2017-01-21] MEDS: Cholestyramine 4 GM POWD.PACK PO SCH ×2 (08:35→17:06)
[2017-01-21] MEDS: Insulin LISPRO 300 UNITS/3 ML VIAL SQ SCH ×4 (08:35→21:27)
[2017-01-21] MEDS: Nicotine 21 MG PATCH.TD24 TD SCH (08:36)
[2017-01-21] MEDS: Lisinopril 20 MG TABLET PO SCH (08:37)
[2017-01-21] MEDS: Cholecalciferol (D-3) 1,000 UNIT TABLET PO SCH (08:37)
[2017-01-21] MEDS ORDERED: (Omega-3/Dha/Epa/Fish Oil [Fish Oil 1,000 Mg Softgel] PO SCH (09:00)
[2017-01-21] MEDS: Ondansetron 4 MG/2 ML VIAL IVP PRN ×2 (09:47→16:58)
[2017-01-21] MEDS ORDERED: Lidocaine -MPF 2% 5 ML VIAL INFILT ONE (10:01)
[2017-01-21] MEDS ORDERED: *HR* Propofol 200 MG/20 ML VIAL IVP ONE (10:01)
[2017-01-21] MEDS ORDERED: *HR* Phenylephrine 10 MG/ML VIAL IVC ONE (10:01)
[2017-01-21] MEDS: Acetaminophen 325 MG TABLET PO PRN (12:22)
--- NOTE | 2017-01-21 13:35 | Anesthesia Evaluation PreOp ---
Date of Encounter: 01/21/17 Time of Encounter: 13:33 - Past History Planned Operation: EGD,Colonoscopy Cardiac History: HTN, Hyperlipidemia Pulmonary History: Smoker, Pack/yr (1ppd x 50yrs) SAFETY CONSULTANT History: Denies Any Significant HX Other Medical History: Diabetes Type II, Thyroid (hypothyroid), Other (coloitis) Anesthesia History: No Prior Anesthetic Complications, Past Anesthesia (DHEERAJ) Alcohol Use: none Drug use: none Medications and Allergies metroNIDAZOLE [Flagyl] 500 mg PO TID #21 tablet 01/15/17 [Rx] Alendronate Sodium [Fosamax] 70 mg PO QWEEK 01/20/17 [History] Calcium Carbonate/Vitamin D3 [Calcium 600-Vit D3 400 Tablet] 1 tab PO BID [History] Canagliflozin/Metformin HCl [Invokamet 50-500 mg Tablet] 1 tab PO BID 01/20/17 [ History] Cholestyramine 4 gm PO BIDAC 01/20/17 [History] Exenatide Microspheres [Bydureon Pen] 2 mg SQ QWEEK 01/20/17 [History] Glimepiride [Amaryl] 8 mg PO QAM 01/20/17 [History] HydrOXYzine 5 - 20 mg PO Q6H PRN 01/20/17 [History] Insulin Glargine,Hum.rec.anlog [Lantus Solostar] 20 unit SQ HS 01/20/17 [History ] Lansoprazole [Prevacid] 30 mg PO DAILY 01/20/17 [History] Levothyroxine [Synthroid] 112 mcg PO DAILY 01/20/17 [History] Lisinopril [Zestril] 20 mg PO DAILY 01/20/17 [History] Loperamide [Imodium] 2 - 4 mg PO TID PRN 01/20/17 [History] Meloxicam [Mobic] 15 mg PO DAILY 01/20/17 [History] Multivitamin [One Daily Essential] 1 tab PO DAILY 01/20/17 [History] [place]-3/Dha/Epa/Fish Oil [Fish Oil 1,000 mg Softgel] 1,000 mg PO DAILY 01/20/17 [History] Ondansetron HCl [Zofran] 4 - 8 mg PO Q8H PRN 01/20/17 [History] Pravastatin Sodium [Pravachol] 20 mg PO DAILY 01/20/17 [History] Tizanidine HCl 4 mg PO Q8H PRN 01/20/17 [History] Allergies No Known Allergies Allergy (Verified 08/10/16 22:23) - Meds/Allergy Pre-op Review Medications Reviewed: Yes Allergies Reviewed: Yes Beta Blockers on Current Med List: No Anesthesia Results - Labs 01/21/17 04:07 01/21/17 04:07 Anesthesia Exam Selected Entries 01/21/17 11:30 Temperature 98.2 F Pulse Rate 99 Respiratory Rate 16 Blood Pressure 122/77 O2 Sat by Pulse Oximetry 95 Weight: 96kg NPO (# of Hours): >8 Pain Scale: 0 Pain Scale Used: Numeric (1 - 10) - HEENT Pupil (Motor): EOMI Mallampati: II Teeth: Missing, Edentulous (upper) Denture Type: Lower: Partial Oral Opening: Greater than 3 - SAFETY CONSULTANT LOC: Oriented SAFETY CONSULTANT Motor: Normal RUE, Normal LUE, Normal RLE, Normal LLE, Normal Face SAFETY CONSULTANT Sensory: Normal: RUE, LUE, RLE, LLE, Face - Cardiac Rhythm: Regular Murmur: None - Pulmonary Breath Sounds: bilateral Clear Respiratory Effort: Symmetrical Anesthesia Assess/Plan ASA Score: 2 Modified Anuj Scale for Level of Consciousness: Cooperative, oriented, and tranquil Anesthetic Plan: MAC Monitoring Plan: Standard Monitors Recovery Plan: Other (Discussed MAC with patient and questions answered. Agrees to proceed)
--- NOTE | 2017-01-21 16:05 | Internal Med Progress Note ---
Date of Encounter: 01/21/17 Time of Encounter: 10:00 - Assessment and plan (1) DVT prophylaxis Current Visit: Yes Status: Acute Assessment and plan: Heparin subcutaneously (2) Diarrhea Current Visit: Yes Status: Acute Assessment and plan: Patient has a chronic diarrhea for years. Need to rule out IBD. GI consult appreciated. Will do colonoscopy Qualifiers: Diarrhea type: unspecified type Qualified Code(s): R19.7 - Diarrhea, unspecified (3) Colitis Current Visit: Yes Status: Acute Assessment and plan: We will continue IV fluid, nothing by mouth, and IV antibiotics. - Patient's symptoms has improved after treatment. (4) Diabetes mellitus Current Visit: Yes Status: Chronic Assessment and plan: We will cover patient with sliding scale Qualifiers: Diabetes mellitus type: type 2 Diabetes mellitus complication status: with neurologic complications Diabetes mellitus complication detail: with polyneuropathy Diabetes mellitus group home insulin use: with intermediate school teacher use Qualified Code(s): E11.42 - Type 2 diabetes mellitus with diabetic polyneuropathy; Z79.4 - long-term (current) use of insulin (5) HTN (hypertension) Current Visit: Yes Status: Chronic Assessment and plan: We will continue home medication Qualifiers: Hypertension type: essential hypertension Qualified Code(s): I10 - Essential (primary) hypertension - Time Spent With Patient 25 - 35 minutes - Subjective Interval history: Patient is a 56-year-old female admitted for bloody diarrhea. Her past medical history is significant for diabetes, hypertension, hyperlipidemia, thyroid disease. I saw and examined the patient today. Patient to feel less abdominal pain. Preparing colonoscope, no blood in stool. Vitals are stable. We will continue nothing by mouth, IV fluid, and IV Cipro and Flagyl treatment. Patient will have colonoscopy today. Her lipase is still high, will order ultrasound abdomen complete to rule out gallstones and pancreatitis. - Constitutional Vitals: Temp Pulse Resp BP Pulse Ox 97.9 F 90 16 125/74 97 01/21/17 13:39 01/21/17 15:17 01/21/17 15:17 01/21/17 15:17 01/21/17 15:17 General appearance: Present: A&O X 3, no acute distress, answers questions appropriately - Head Head exam: Present: atraumatic, normocephalic - Eye Eye exam: Present: PERRL, conjuntiva pink, sclera anicteric Pupils: Present: PERRL - Neck Neck exam general surgery: Present: supple, trachea midline. Absent: lymphadenopathy - Respiratory Respiratory exam: Present: CTAB. Absent: accessory muscle use, rales, rhonchi, wheezes - Cardiovascular Cardiovascular exam: Present: RRR, +S1, +S2. Absent: diastolic murmur, gallop, rubs, systolic murmur - GI/Abdominal GI/Abdominal exam: Present: normal bowel sounds, soft, tenderness (Mild tenderness without rebound or guarding), no peritoneal signs. Absent: distended - Extremities Exam Extremities exam: Present: warm, radial pulses palpable and symetrical. Absent : calf tenderness, cyanotic, pedal edema - Neurological Exam Neurological exam: Present: CN II-XII intact, oriented X3, no focal deficits. Absent: pronater drift, facial droop, speech deficit - Skin Skin exam: Present: dry, intact Internal Medicine: Result - Labs CBC & Chem 7: 01/21/17 04:07 01/21/17 04:07 Labs: Short CBC 01/21/17 Range/Units 04:07 WBC 6.6 (4.3-11.1) K/mcL Hgb 13.4 (11.5-15.4) g/dL Hct 41.0 (35.3-44.9) % Plt Count 325 (140-400) K/mcL Neutrophils # 4.5 (1.6-8.9) K/mcL BMP 01/21/17 04:07 Sodium 142 Potassium 3.5 Chloride 109 Carbon Dioxide 24 BUN 4 L Creatinine 0.73 Glucose 148 H Calcium 8.8 Consult Discharge Plan - Plan Referrals: Carlos Casey MD [Primary Care Provider] -
[2017-01-21] MEDS: Insulin DETEMIR 100 UNIT/ML X5UNITS SQ SCH (21:25)
[2017-01-22] MEDS: MetroNIDAZOLE 500 MG/100 ML 500 MG/100 ML BAG IVPB SCH ×2 (00:34→08:10)
[2017-01-22 05:00] LABS: Hemoglobin 12.1 g/dL (11.5-15.4); Mean Corpuscular Hemoglobin 27.4 pg (28.0-33.3); Mean Corpuscular Volume 88.2 fL (83.0-100.0); Mean Platelet Volume 9.6 fL (9.4-12.4); Platelet Count 310 K/mcL (140-400); Red Blood Count 4.42 M/mcL (3.82-4.97); Red Cell Distribution Width 15.4 % (11.5-14.5)
[2017-01-22] MEDS: *HR* Heparin 5,000 UNIT/ML VIAL SQ SCH ×3 (05:14→21:46)
[2017-01-22 05:16] LABS: Chol/HDL Ratio 3.8 (0-4.9)
[2017-01-22 05:17] LABS: BUN/Creatinine Ratio 6 (6-26); Carbon Dioxide 24 mEq/L (19-29); Chloride 108 mEq/L (98-109); Glucose 109 mg/dL (70-99); Lipase 553 Units/L (8-78); Osmolality,Calculated 287 (280-300); Potassium 3.6 mEq/L (3.5-4.5); Sodium 140 mEq/L (136-145); eGFR For African Americans > 60 (> 60); eGFR For Non-African Americans > 60 (> 60)
[2017-01-22 05:19] LABS: Blood Urea Nitrogen 4 mg/dL (7-20)
[2017-01-22 05:44] LABS: Lymphocytes # 1.8 K/mcL (0.6-4.6); Neutrophils # 5.4 K/mcL (1.6-8.9); Platelet Estimate Normal (Normal)
[2017-01-22] MEDS: Cholecalciferol (D-3) 1,000 UNIT TABLET PO SCH (08:09)
[2017-01-22] MEDS: Lisinopril 20 MG TABLET PO SCH (08:10)
[2017-01-22] MEDS: Nicotine 21 MG PATCH.TD24 TD SCH (08:10)
[2017-01-22] MEDS: Insulin LISPRO 300 UNITS/3 ML VIAL SQ SCH ×2 (08:11→17:26)
[2017-01-22] MEDS: Cholestyramine 4 GM POWD.PACK PO SCH ×2 (08:12→17:28)
[2017-01-22] MEDS ORDERED: 0.9 % Sodium Chloride 1,000 ML ONE (08:18)
[2017-01-22] MEDS: 0.9 % Sodium Chloride 1,000 ML IVC SCH ×2 (10:35→20:01)
--- NOTE | 2017-01-22 13:40 | Internal Med Progress Note ---
Date of Encounter: 01/22/17 Time of Encounter: 10:00 - Assessment and plan (1) DVT prophylaxis Current Visit: Yes Status: Acute Assessment and plan: Heparin subcutaneously (2) Diarrhea Current Visit: Yes Status: Acute Assessment and plan: Patient has a chronic diarrhea for years. Need to rule out IBD. GI consult appreciated. Had colonoscopy Qualifiers: Diarrhea type: unspecified type Qualified Code(s): R19.7 - Diarrhea, unspecified (3) Colitis Current Visit: Yes Status: Acute Assessment and plan: We will continue IV fluid, advance to clear liquid diet, d/c IV antibiotics. (4) Diabetes mellitus Current Visit: Yes Status: Chronic Assessment and plan: We will cover patient with sliding scale Qualifiers: Diabetes mellitus type: type 2 Diabetes mellitus complication status: with neurologic complications Diabetes mellitus complication detail: with polyneuropathy Diabetes mellitus watermaster insulin use: with watermaster use Qualified Code(s): E11.42 - Type 2 diabetes mellitus with diabetic polyneuropathy; Z79.4 - ferry terminal agent (current) use of insulin (5) HTN (hypertension) Current Visit: Yes Status: Chronic Assessment and plan: We will continue home medication Qualifiers: Hypertension type: essential hypertension Qualified Code(s): I10 - Essential (primary) hypertension (6) Pancreatitis Current Visit: Yes Status: Acute Assessment and plan: Abd pain with elevated lipase, consider pancreatitis. - Continue IVF - Advance diet as tolerate - track lipase level. Qualifiers: Chronicity: acute Pancreatitis type: unspecified pancreatitis type Acute pancreatitis complication: no infection or necrosis Qualified Code(s): K85.90 - Acute pancreatitis without necrosis or infection, unspecified - Time Spent With Patient 25 - 35 minutes - Subjective Interval history: Patient is a 56-year-old female admitted for bloody diarrhea. Her past medical history is significant for diabetes, hypertension, hyperlipidemia, thyroid disease. I saw and examined the patient today. Patient to feel less abdominal pain. Had colonoscopy yesterday. GI recommend entocort 9mg daily upon discharge. Lipase level trend down, US abd shows no gall stone or imaging evidence of pancreatitis. Review her chart, her lipase level was 78 on 01/15, and pt admit with abd pain and nausea, will treat pt as acute pancreatitis with IVF. She is on clear liquid diet now, will advance as tolerate and track lipase level. If clinically keep improving, plan to discharge home tomorrow. - Constitutional Vitals: Temp Pulse Resp BP Pulse Ox 98.0 F 78 16 101/57 97 01/22/17 10:35 01/22/17 10:35 01/22/17 10:35 01/22/17 10:35 01/22/17 10:35 General appearance: Present: A&O X 3, no acute distress, answers questions appropriately - Head Head exam: Present: atraumatic, normocephalic - Eye Eye exam: Present: PERRL, conjuntiva pink, sclera anicteric Pupils: Present: PERRL - Neck Neck exam general surgery: Present: supple, trachea midline. Absent: lymphadenopathy - Respiratory Respiratory exam: Present: CTAB. Absent: accessory muscle use, rales, rhonchi, wheezes - Cardiovascular Cardiovascular exam: Present: RRR, +S1, +S2. Absent: diastolic murmur, gallop, rubs, systolic murmur - GI/Abdominal GI/Abdominal exam: Present: normal bowel sounds, soft, tenderness (Mild LUQ terderness), no peritoneal signs. Absent: distended - Extremities Exam Extremities exam: Present: warm, radial pulses palpable and symetrical. Absent : calf tenderness, cyanotic, pedal edema - Neurological Exam Neurological exam: Present: CN II-XII intact, oriented X3, no focal deficits. Absent: pronater drift, facial droop, speech deficit - Skin Skin exam: Present: dry, intact Internal Medicine: Result - Labs CBC & Chem 7: 01/22/17 03:24 01/22/17 03:24 Labs: Short CBC 01/22/17 Range/Units 03:24 WBC 8.2 (4.3-11.1) K/mcL Hgb 12.1 (11.5-15.4) g/dL Hct 39.0 (35.3-44.9) % Plt Count 310 (140-400) K/mcL Neutrophils # 5.4 (1.6-8.9) K/mcL BMP 01/22/17 03:24 Sodium 140 Potassium 3.6 Chloride 108 Carbon Dioxide 24 BUN 4 L Creatinine 0.69 Glucose 109 H Calcium 8.0 L - Impressions Impressions Abdomen Ultrasound 01/22/17 09:30 IMPRESSION: 1. Findings suggesting hepatic steatosis. 2. Negative for cholelithiasis or acute cholecystitis. 3. No biliary obstruction. D/ / 01/22/2017 10:18:26 Hector Mitchell MD / edwin Interpreting Provider: Hector Mitchell MD Consult Discharge Plan - Plan Referrals: Carlos Casey MD [Primary Care Provider] - 01/27/17 11:30 am
[2017-01-22] MEDS: Acetaminophen 325 MG TABLET PO PRN (17:30)
[2017-01-22] MEDS ORDERED: Insulin LISPRO 300 UNITS/3 ML VIAL SQ SCH (21:00)
[2017-01-22] MEDS ORDERED: ALPRAZolam 0.25 MG TABLET PO ONE ×2 (22:55→23:00)
[2017-01-23 03:59] LABS: Eosinophils # 0.1 K/mcL (0.0-0.6); Hematocrit 34.3 % (35.3-44.9); Hemoglobin 11.2 g/dL (11.5-15.4); Mean Corpuscular HGB Conc 32.7 g/dL (31.6-35.5); Mean Corpuscular Hemoglobin 28.5 pg (28.0-33.3); Mean Corpuscular Volume 87.3 fL (83.0-100.0); Mean Platelet Volume 9.7 fL (9.4-12.4); Platelet Count 277 K/mcL (140-400); Red Blood Count 3.93 M/mcL (3.82-4.97); Red Cell Distribution Width 15.3 % (11.5-14.5)
[2017-01-23 04:22] LABS: BUN/Creatinine Ratio 4 (6-26); Calcium 7.7 mg/dL (8.6-10.8); Carbon Dioxide 23 mEq/L (19-29); Chloride 115 mEq/L (98-109); Glucose 143 mg/dL (70-99); Lipase 573 Units/L (8-78); Osmolality,Calculated 295 (280-300); Potassium 3.2 mEq/L (3.5-4.5); Sodium 143 mEq/L (136-145); eGFR For African Americans > 60 (> 60); eGFR For Non-African Americans > 60 (> 60)
[2017-01-23 04:23] LABS: Blood Urea Nitrogen 3 mg/dL (7-20)
[2017-01-23 04:32] LABS: Lymphocytes # 1.8 K/mcL (0.6-4.6); Monocytes # 0.6 K/mcL (0.0-1.3); Neutrophils # 4.4 K/mcL (1.6-8.9)
[2017-01-23 04:33] LABS: Platelet Estimate Normal (Normal); Reactive Lymphocytes Present (Not Present)
[2017-01-23] MEDS: 0.9 % Sodium Chloride 1,000 ML IVC SCH (05:39)
[2017-01-23] MEDS: *HR* Heparin 5,000 UNIT/ML VIAL SQ SCH (05:40)
[2017-01-23] MEDS: Acetaminophen 325 MG TABLET PO PRN (05:43)
[2017-01-23 08:03] VITALS: BP 111/71
[2017-01-23] MEDS: Cholestyramine 4 GM POWD.PACK PO SCH (08:47)
[2017-01-23] MEDS: Insulin LISPRO 300 UNITS/3 ML VIAL SQ SCH (08:54)
[2017-01-23] MEDS: Lisinopril 20 MG TABLET PO SCH (08:55)
[2017-01-23] MEDS: Cholecalciferol (D-3) 1,000 UNIT TABLET PO SCH (08:55)
[2017-01-23] MEDS: Nicotine 21 MG PATCH.TD24 TD SCH (08:56)
--- NOTE | 2017-01-23 10:17 | Discharge Summary ---
Date of Encounter: 01/23/17 Time of Encounter: 09:00 - Discharge Diagnosis (1) DVT prophylaxis Priority: Secondary Status: Acute (2) Diarrhea Priority: Primary Status: Acute Qualifiers: Diarrhea type: unspecified type Qualified Code(s): R19.7 - Diarrhea, unspecified (3) Colitis Priority: Primary Status: Acute (4) Diabetes mellitus Priority: Secondary Status: Chronic Qualifiers: Diabetes mellitus type: type 2 Diabetes mellitus complication status: with neurologic complications Diabetes mellitus complication detail: with polyneuropathy Diabetes mellitus intensive care ambulance paramedic insulin use: with care home use Qualified Code(s): E11.42 - Type 2 diabetes mellitus with diabetic polyneuropathy; Z79.4 - shelter (current) use of insulin (5) HTN (hypertension) Priority: Secondary Status: Chronic Qualifiers: Hypertension type: essential hypertension Qualified Code(s): I10 - Essential (primary) hypertension (6) Pancreatitis Priority: Primary Status: Acute Qualifiers: Chronicity: acute Pancreatitis type: unspecified pancreatitis type Acute pancreatitis complication: no infection or necrosis Qualified Code(s): K85.90 - Acute pancreatitis without necrosis or infection, unspecified - Discharge Medications Prescriptions: Nicotine Patch [Nicoderm] 21 mg TD DAILY #14 [email or web address] Home Medications: Alendronate Sodium [Fosamax] 70 mg PO QWEEK 01/20/17 [History] Calcium Carbonate/Vitamin D3 [Calcium 600-Vit D3 400 Tablet] 1 tab PO BID [History] Canagliflozin/Metformin HCl [Invokamet 50-500 mg Tablet] 1 tab PO BID 01/20/17 [ History] Cholestyramine 4 gm PO BIDAC 01/20/17 [History] Exenatide Microspheres [Bydureon Pen] 2 mg SQ QWEEK 01/20/17 [History] Glimepiride [Amaryl] 8 mg PO QAM 01/20/17 [History] HydrOXYzine 5 - 20 mg PO Q6H PRN 01/20/17 [History] Insulin Glargine,Hum.rec.anlog [Lantus Solostar] 20 unit SQ HS 01/20/17 [History ] Lansoprazole [Prevacid] 30 mg PO DAILY 01/20/17 [History] Levothyroxine [Synthroid] 112 mcg PO DAILY 01/20/17 [History] Lisinopril [Zestril] 20 mg PO DAILY 01/20/17 [History] Loperamide [Imodium] 2 - 4 mg PO TID PRN 01/20/17 [History] Meloxicam [Mobic] 15 mg PO DAILY 01/20/17 [History] Multivitamin [One Daily Essential] 1 tab PO DAILY 01/20/17 [History] Aurora-3/Dha/Epa/Fish Oil [Fish Oil 1,000 mg Softgel] 1,000 mg PO DAILY 01/20/17 [History] Ondansetron HCl [Zofran] 4 - 8 mg PO Q8H PRN 01/20/17 [History] Pravastatin Sodium [Pravachol] 20 mg PO DAILY 01/20/17 [History] Tizanidine HCl 4 mg PO Q8H PRN 01/20/17 [History] Budesonide [Entocort EC] 9 mg PO DAILY #90 capdr...er 01/23/17 [Rx] Nicotine Patch [Nicoderm] 21 mg TD DAILY #14 patch.[email or web address] 01/23/17 [Rx] Allergies/Adverse Reactions: Allergies No Known Allergies Allergy (Verified 08/10/16 22:23) Procedures/tests Complete & Pending: Procedures Performed prior 72 hours Category Date Time Status US abdomen limited [US] Stat Exams 01/22/17 09:30 Completed - Notes to Outpatient Provider 1. Patient has high lipase and a low potassium level, please repeat lipase and BMP in 1 week Date of admission: 01/20/17 01:56 Primary care physician: Carlos Casey MD Consults: 01/20/17 07:21 Consult to Gastroenterology [CONS] Routine Consulting Provider: Gastroenterology Amalia Reason for Consult: Bloody diarrhea Call Completed: No Discharging clinician: Mabel José Anticipated date of discharge: 01/23/17 - Patient Status Disposition: Home, Self-Care Condition: Good Functional capacity at discharge: independent ambulation Overall status at discharge: patient is progressing back to baseline - Discharge Instructions Follow Up With: Carlos Casey MD [Primary Care Provider] - 01/27/17 11:30 am Dorothy Champion MD [Partnered Physician] - 02/05/17 - Diet and Activity Activity: increase activity as tolerated Diet: other (Keep full liquid diet now, advance gradually as no further abdominal pain) Interval History: Ms. Muñoz is a 56 year old female with a history of chronic diarrhea for the past 20 years comes in with worsening diarrhea. She reports that she has had worsening of her symptoms in the past 4 weeks, 3 weeks ago she received some antibiosis for her symptoms and after that her diarrhea continued. About a week ago she noticed that her stool were bloody which she has never had prior. Her diarrhea has also been associated with crampy lower abdominal pain mostly in the right and let lower abdomen, worse with movement, eating. She has nausea but no vomiting though she has dry heaves, no fever chills but she fees very fatigued with generalized weakness. Hospital course: Ms. Muñoz is a 56 year old female admitted for colitis and pancreatitis. Patient was treated with nothing by mouth, IV fluid. GI consult was called. Patient had a colonoscopy done. After treatment, patient's abdominal pain has improved, diarrhea has resolved. She had UA abd, shows no gallstones or pancreas inflammation. Her diet has advanced to full liquid and patient to tolerate well. Patient can be discharged home and follow-up with GI and PCP as outpatient. I saw and examined the patient today. She is awake alert, oriented 3. Vitals are stable. Still having mild epigastric tenderness, no rebound. Patient's lipase is getting down but is still 500 level. I educated patient keep full liquid diet now, advance diet as she does not feel abdominal pain. Avoid binge eating or high fat or fried food. Patient was educated to come to hospital immediately if the abdominal pain gets worse. GI recommended starting entocort 9mg po daily, prescription was given patient. Patient will follow-up with GI and PCP as outpatient. Her potassium level is 3.2 today, 40 mEq potassium is given. Patient will follow-up potassium and lipase level with PCP. Time spent discussing smoking cessation with patient: more than 10 minutes - Time Spent with Patient Total time spent providing and/or coordinating discharge services:40min Greater than 30 minutes - Constitutional Vitals: Temp Pulse Resp BP Pulse Ox 97.9 F 77 18 111/71 96 01/23/17 08:02 01/23/17 08:02 01/23/17 08:02 01/23/17 08:02 01/23/17 08:02 General appearance: Present: A&O X 3, no acute distress, answers questions appropriately - Head Head exam: Present: atraumatic, normocephalic - Eye Eye exam: Present: PERRL, conjuntiva pink, sclera anicteric Pupils: Present: PERRL - Neck Neck exam general surgery: Present: supple, trachea midline. Absent: lymphadenopathy - Respiratory Respiratory exam: Present: CTAB. Absent: accessory muscle use, rales, rhonchi, wheezes - Cardiovascular Cardiovascular exam: Present: RRR, +S1, +S2. Absent: diastolic murmur, gallop, rubs, systolic murmur - GI/Abdominal GI/Abdominal exam: Present: normal bowel sounds, soft, tenderness (Mild epigastric tenderness without rebound or guarding), no peritoneal signs. Absent : distended - Extremities Exam Extremities exam: Present: warm, radial pulses palpable and symetrical. Absent : calf tenderness, cyanotic, pedal edema - Neurological Exam Neurological exam: Present: CN II-XII intact, oriented X3, no focal deficits. Absent: pronater drift, facial droop, speech deficit - Skin Skin exam: Present: dry, intact - VTE Documentation of Mechanical Device: Graduated compression elastic hosiery
== END 2017-01-23 11:43 | disposition home or self-care (01) | DRG 391 ==
LOC: 3ANU 22:01 → EMEROO 22:01 → 3ANU 01-20 01:01
PROVIDERS: ADMIT Internal Medicine; ATTEND Internal Medicine
PROC: ENDOEBX (2017-01-21 13:30)

== ENCOUNTER 2019-07-31 10:57 | Observation (INO) ==
[2019-07-31] MEDS ORDERED: Ondansetron 4 MG/2 ML VIAL IVP PRN (13:15)
[2019-07-31] MEDS ORDERED: *HR* Promethazine 25 MG/ML VIAL IVP PRN (13:15)
[2019-07-31] MEDS ORDERED: Mag Hydrox/Al Hydrox/Simeth 30 ML UDC PO PRN (13:15)
[2019-07-31] MEDS ORDERED: Naloxone 0.4 MG/ML INJ IVP PRN (13:15)
[2019-07-31] MEDS ORDERED: MOM Conc 10 ML UD.LIQ PO PRN (13:15)
[2019-07-31] MEDS ORDERED: *HR* Dextrose 50 % in Water (Syg) 50 ML SYRINGE IVP PRN (13:17)
[2019-07-31] MEDS ORDERED: D5% in Water 1,000 ML IVC PRN (13:17)
[2019-07-31] MEDS ORDERED: Dextrose Gel 15 GM/37.5 ML TUBE PO PRN ×2 (13:17)
[2019-07-31] MEDS ORDERED: BuPROPion XL (24 HR) 150 MG TABLET PO ONE (17:34)
[2019-07-31] MEDS: Insulin LISPRO 300 UNITS/3 ML VIAL SQ SCH (18:01)
[2019-07-31] MEDS: *HR* Heparin 5,000 UNIT/ML VIAL SQ SCH (18:01)
[2019-07-31] MEDS ORDERED: Insulin DETEMIR 100 UNIT/ML X5UNITS SQ SCH (21:00)
[2019-07-31] MEDS ORDERED: Insulin LISPRO 300 UNITS/3 ML VIAL SQ SCH (21:00)
[2019-08-01] MEDS: *HR* Heparin 5,000 UNIT/ML VIAL SQ SCH (05:49)
[2019-08-01 06:54] LABS: Basophils % 0.5 %; Eosinophils # 0.1 K/mcL (0.0-0.6); Eosinophils % 1.8 %; Hematocrit 44.1 % (35.3-44.9); Hemoglobin 13.5 g/dL (11.5-15.4); Immature Granulocytes % 0.3 % (0-4); Lymphocytes # 2.4 K/mcL (0.6-4.6); Lymphocytes % 30.8 %; Mean Corpuscular HGB Conc 30.6 g/dL (31.6-35.5); Mean Corpuscular Hemoglobin 26.5 pg (28.0-33.3); Mean Corpuscular Volume 86.6 fL (83.0-100.0); Mean Platelet Volume 9.9 fL (9.4-12.4); Monocytes # 0.5 K/mcL (0.0-1.3); Monocytes % 6.6 %; Neutrophils # 4.7 K/mcL (1.6-8.9); Platelet Count 317 K/mcL (140-400); Red Blood Count 5.09 M/mcL (3.82-4.97); White Blood Count 7.8 K/mcL (4.3-11.1)
[2019-08-01 08:43] LABS: Alanine Aminotransferase 13 Units/L (7-52); Albumin 3.9 g/dL (3.5-5.7); Albumin/Globulin Ratio 1.3 (1.1-2.2); Alkaline Phosphatase 104 Units/L (34-104); Aspartate Amino Transferase 11 Units/L (13-39); BUN/Creatinine Ratio 13 (6-26); Bilirubin,Total 0.3 mg/dL (0.3-1.0); Blood Urea Nitrogen 11 mg/dL (6-20); Calcium 9.2 mg/dL (8.6-10.3); Carbon Dioxide 27 mEq/L (23-29); Chloride 105 mEq/L (98-107); Chol/HDL Ratio 4.2 (0-4.9); Cholesterol 212 mg/dL (< 200); Glucose 90 mg/dL (70-105); HDL Cholesterol 51 mg/dL (40-59); LDL Cholesterol,Calculated 120 mg/dL (0-99); Magnesium 1.5 mg/dL (1.6-2.6); Osmolality,Calculated 295 (280-300); Phosphorous 2.5 mg/dL (2.7-4.5); Potassium 3.7 mEq/L (3.5-5.1); Sodium 143 mEq/L (136-145); Total Protein 6.9 g/dL (6.4-8.9); Triglycerides 203 mg/dL (< 150); eGFR For African Americans > 60 (> 60); eGFR For Non-African Americans > 60 (> 60)
[2019-08-01] MEDS ORDERED: Lisinopril 20 MG TABLET PO SCH (09:00)
[2019-08-01] MEDS ORDERED: BuPROPion XL (24 HR) 150 MG TABLET PO SCH (09:00)
[2019-08-01] MEDS: Insulin LISPRO 300 UNITS/3 ML VIAL SQ SCH ×2 (09:37→12:09)
[2019-08-01] MEDS ORDERED: Acetaminophen 325 MG TABLET PO PRN (10:30)
[2019-08-01 12:14] VITALS: BP 133/86
[2019-08-01] MEDS ORDERED: Pantoprazole 40 MG VIAL IVP SCH (13:00)
[2019-08-01] MEDS ORDERED: BuPROPion XL (24 HR) 150 MG TABLET PO ONE (16:43)
== END 2019-08-01 16:41 | disposition home or self-care (01) ==
LOC: 3ANU → SUATTDRO 12:13
PROVIDERS: ADMIT Internal Medicine; ATTEND Pharmacist

== ENCOUNTER 2020-01-27 14:30 | Inpatient (IN) ==
[2020-01-27] MEDS ORDERED: 0.9 % Sodium Chloride 1,000 ML IVC STA ×2 (14:52→16:02)
[2020-01-27] MEDS ORDERED: Ondansetron 4 MG/2 ML VIAL IVP STA (14:52)
[2020-01-27 15:12] LABS: Basophils # 0.1 K/mcL (0.0-0.2); Basophils % 0.3 %; Hematocrit 41.8 % (35.3-44.9); Hemoglobin 13.3 g/dL (11.5-15.4); Immature Granulocytes % 0.8 % (0-4); Lymphocytes # 1.5 K/mcL (0.6-4.6); Lymphocytes % 7.8 %; Mean Corpuscular HGB Conc 31.8 g/dL (31.6-35.5); Mean Corpuscular Hemoglobin 25.7 pg (28.0-33.3); Mean Corpuscular Volume 80.7 fL (83.0-100.0); Mean Platelet Volume 9.5 fL (9.4-12.4); Monocytes # 1.2 K/mcL (0.0-1.3); Monocytes % 6.4 %; Neutrophils # 16.2 K/mcL (1.6-8.9); Platelet Count 273 K/mcL (140-400); Red Blood Count 5.18 M/mcL (3.82-4.97); Red Cell Distribution Width 15.7 % (11.5-14.5); Segmented Neutrophils % 84.7 %; White Blood Count 19.2 K/mcL (4.3-11.1)
[2020-01-27 15:30] LABS: INR 1.2; Prothrombin Time 14.1 Seconds (9.4-12.1)
[2020-01-27 15:32] LABS: Activated Partial Thrombo Time 30.8 Seconds (26.0-36.0)
[2020-01-27 15:33] LABS: Albumin 3.9 g/dL (3.5-5.7); Bilirubin,Direct 0.1 mg/dL (0.0-0.2); Bilirubin,Indirect 0.4 mg/dL (0.0-1.0); Bilirubin,Total 0.5 mg/dL (0.3-1.0); Calcium 8.6 mg/dL (8.6-10.3); Globulin 3.8 g/dL (2.4-3.5); Magnesium 0.9 mg/dL (1.6-2.6); Phosphorous 1.7 mg/dL (2.7-4.5); Potassium 3.9 mEq/L (3.5-5.1); Total Protein 7.7 g/dL (6.4-8.9); Troponin I 0.03 ng/mL (< 0.04)
[2020-01-27] MEDS ORDERED: Isovue-370 500 ML BOTTLE IVP ONE (15:52)
[2020-01-27] MEDS ORDERED: levoFLOXacin 750 MG/150 ML 750 MG/150 ML BAG IVPB ONE (16:24)
[2020-01-27 16:28] LABS: Bilirubin,Urine Negative (Negative); Blood,Urine Moderate (Negative); Clarity,Urine Turbid (Clear); Color,Urine Yellow (Yellow); Glucose,Urine (UA) >=1000 mg/dL (Normal); Ketones,Urine 15 mg/dL (Negative); Leukocyte Esterase,Urine Large (Negative); Nitrite,Urine Negative (Negative); PH,Urine 5.5 pH Units (5.0-8.0); Protein,Urine 30 mg/dL (Neg-Trace); Specific Gravity,Urine 1.023 (1.010-1.025); Urobilinogen,Urine Normal (Normal)
[2020-01-27 16:30] LABS: Bacteria,Urine Many per hpf (None-Few); Hyaline Casts,Urine None Seen per lpf (None-Few); Squamous Epithelial Cell,Urine Many per lpf (None-Few); WBC,Urine TNTC per hpf (0-3)
[2020-01-27] MEDS ORDERED: 0.9 % Sodium Chloride 1,000 ML IVC SCH (17:30)
[2020-01-27] MEDS ORDERED: Ipratropium/Albuterol Neb 3 ML IH PRN (17:43)
[2020-01-27] MEDS ORDERED: *HR* Heparin 5,000 UNIT/ML VIAL SQ SCH (18:00)
[2020-01-27] MEDS: *HR* Heparin 5,000 UNIT/ML VIAL SQ SCH ×2 (20:11→22:33)
[2020-01-27 21:34] LABS: Calcium 7.8 mg/dL (8.6-10.3); Potassium 3.6 mEq/L (3.5-5.1)
[2020-01-27] MEDS ORDERED: Ipratropium/Albuterol Neb 3 ML IH SCH (22:00)
[2020-01-27] MEDS ORDERED: Ringers Solution, Lactated 1,000 ML IVC SCH (23:45)
[2020-01-28] MEDS: Acetaminophen 325 MG TABLET PO PRN ×4 (00:11→22:21)
[2020-01-28] MEDS ORDERED: Dextrose Gel 15 GM/37.5 ML TUBE PO PRN ×2 (01:11)
[2020-01-28] MEDS ORDERED: D5% in Water 1,000 ML IVC PRN (01:11)
[2020-01-28] MEDS ORDERED: *HR* Dextrose 50 % in Water (Syg) 50 ML SYRINGE IVP PRN (01:11)
[2020-01-28] MEDS: Insulin DETEMIR 100 UNIT/ML X5UNITS SQ SCH ×2 (02:56→22:23)
[2020-01-28] MEDS: Insulin LISPRO 300 UNITS/3 ML VIAL SQ SCH ×4 (02:56→17:35)
[2020-01-28 04:09] LABS: Basophils % 0.2 %; Hematocrit 37.5 % (35.3-44.9); Immature Granulocytes % 0.6 % (0-4); Lymphocytes % 7.9 %; Mean Corpuscular Hemoglobin 25.9 pg (28.0-33.3); Mean Platelet Volume 9.5 fL (9.4-12.4); Monocytes # 0.6 K/mcL (0.0-1.3); Monocytes % 4.6 %; Neutrophils # 10.6 K/mcL (1.6-8.9); Platelet Count 246 K/mcL (140-400); Red Blood Count 4.63 M/mcL (3.82-4.97); Red Cell Distribution Width 15.8 % (11.5-14.5); Segmented Neutrophils % 86.7 %; White Blood Count 12.2 K/mcL (4.3-11.1)
[2020-01-28 04:28] LABS: BUN/Creatinine Ratio 19 (6-26); Blood Urea Nitrogen 17 mg/dL (8-23); Carbon Dioxide 18 mEq/L (23-29); Chloride 99 mEq/L (98-107); Glucose 118 mg/dL (70-105); Osmolality,Calculated 273 (280-300); Potassium 3.4 mEq/L (3.5-5.1); Sodium 130 mEq/L (136-145); eGFR For African Americans > 60 (> 60); eGFR For Non-African Americans > 60 (> 60)
[2020-01-28] MEDS: *HR* Heparin 5,000 UNIT/ML VIAL SQ SCH ×3 (05:45→22:21)
[2020-01-28] MEDS ORDERED: D5% in Water 250 ML IVC SCH (06:30)
[2020-01-28 08:11] LABS: Magnesium 2.1 mg/dL (1.6-2.6); Phosphorous 4.1 mg/dL (2.7-4.5)
[2020-01-29] MEDS: *HR* OxyCODONE/APAP 5/325 TABLET PO PRN ×2 (00:13→10:31)
[2020-01-29] MEDS: *HR* Heparin 5,000 UNIT/ML VIAL SQ SCH (06:19)
[2020-01-29] MEDS: Insulin LISPRO 300 UNITS/3 ML VIAL SQ SCH (08:15)
[2020-01-29 08:50] LABS: Basophils % 0.4 %; Eosinophils # 0.1 K/mcL (0.0-0.6); Eosinophils % 0.6 %; Hematocrit 38.1 % (35.3-44.9); Hemoglobin 11.9 g/dL (11.5-15.4); Immature Granulocytes % 0.6 % (0-4); Lymphocytes # 0.7 K/mcL (0.6-4.6); Mean Corpuscular HGB Conc 31.2 g/dL (31.6-35.5); Mean Corpuscular Hemoglobin 25.8 pg (28.0-33.3); Mean Corpuscular Volume 82.6 fL (83.0-100.0); Monocytes # 0.5 K/mcL (0.0-1.3); Monocytes % 6.3 %; Neutrophils # 6.6 K/mcL (1.6-8.9); Platelet Count 276 K/mcL (140-400); Red Blood Count 4.61 M/mcL (3.82-4.97); Red Cell Distribution Width 15.8 % (11.5-14.5); Segmented Neutrophils % 83.1 %; White Blood Count 7.9 K/mcL (4.3-11.1)
[2020-01-29 09:09] LABS: BUN/Creatinine Ratio 20 (6-26); Blood Urea Nitrogen 15 mg/dL (8-23); Calcium 8.6 mg/dL (8.6-10.3); Carbon Dioxide 24 mEq/L (23-29); Chloride 99 mEq/L (98-107); Glucose 163 mg/dL (70-105); Osmolality,Calculated 278 (280-300); Potassium 3.9 mEq/L (3.5-5.1); Sodium 132 mEq/L (136-145); eGFR For African Americans > 60 (> 60); eGFR For Non-African Americans > 60 (> 60)
[2020-01-29] MEDS: levoFLOXacin 750 MG/150 ML 750 MG/150 ML BAG IVPB ONE ×2 (10:31→11:32)
[2020-01-29] MEDS ORDERED: levoFLOXacin 750 MG TABLET PO ONE (11:18)
[2020-01-29 11:37] VITALS: BP 125/73
[2020-01-30 11:48] LABS: ABG Base Excess -3 mEq/L (-2 to 3); ABG HCO3 20 mEq/L (21-27); ABG Oxygen Saturation 95 % (95-98); ABG PCO2 29 mmHg (35-45); ABG PH 7.45 pH Units (7.32-7.45); ABG PO2 72 mmHg (85-104); ABG TCO2 21 mEq/L (20-26)
== END 2020-01-29 12:33 | disposition home or self-care (01) | DRG 871 ==
LOC: EMEROOARM 14:30 → 2NENU 17:37 → 2ANU 01-28 13:22
PROVIDERS: ADMIT Internal Medicine; ATTEND Internal Medicine